=== PATIENT | male | born 1955 | race Caucasian/White ===

== ENCOUNTER 2019-12-19 05:56 | Inpatient (IN) ==
--- NOTE | 2019-12-12 09:15 | Anesthesiology Consultation ---
Date of Service December 12, 2019 Assessment & Plan (1) Encounter for pre-operative examination: - Per assessment on 12/11: Travel screen negative. No known COVID-19 positive contacts or current COVID-19 related symptoms. Surgeon arranging preop COVID t esting (scheduled 12/12; [facility]). Awaiting results. - Check BSG AM DOS - S/P Right Cataract extraction with IOL: 03/02/19: MAC [place] [facility] [place] Review Chart Review: Acceptable Risk for Surgery and Patient NOT seen in Pre Admission Testing History Surgery Operation Date: 12/19/19 09:35 Proposed Procedures p C4-C7 Anterior Cervical Discectomy and Fusion, C5 Corpectomy, Spinal Cord Monitoring - Gurjit Guzmán, Height/Weight Height: 5 ft 9.5 in Weight: 83.915 kg Allergies Allergy/AdvReac Type Severity Reaction Status Date / Time Penicillins Allergy Mild RASH Verified 12/12/19 07:53 Medications Home Medications Medication Instructions Recorded Confirmed Last Taken ICaps AREDS 2 tab PO BID #0 10/21/17 12/12/19 03/01/19 cyanocobalamin (vitamin B-12) 1,000 mcg IM MONTHLY #0 10/21/17 12/12/19 Unknown cholecalciferol (vitamin D3) 10 400 units PO QPM 08/17/18 12/12/19 03/01/19 mcg (400 unit) capsule insulin syringe-needle U-100 0.5 #10 ea 08/17/18 10/24/19 Unknown mL 31 gauge x 5/16" omega 5-brg-flp-fish oil [Fish Oil] 1 cap PO BID 01/17/19 12/12/19 03/01/19 insulin aspart U-100 100 unit/mL 1 sliding scale dose SUBCUT UD #30 04/05/19 12/12/19 Unknown subcutaneous solution ml atorvastatin 40 mg tablet 40 mg PO QPM #90 tab 04/10/19 12/12/19 Unknown vedolizumab 300 mg intravenous See Rx Instructions IV .COMPLEX 04/26/19 12/12/19 Unknown solution lorazepam 0.5 mg tablet 0.5 mg PO HS PRN #30 tab 05/29/19 12/12/19 Unknown furosemide 20 mg tablet 20 mg PO QAM #30 tab 08/22/19 12/12/19 Unknown insulin glargine 100 unit/mL 21 units SUBCUT HS #2 vial 08/24/19 12/12/19 Unknown subcutaneous solution potassium chloride 10 mEq 10 meq PO DAILY #30 tab 08/28/19 12/12/19 Unknown tablet,extended release blood sugar diagnostic #90 ea 09/14/19 10/24/19 Unknown lancets 28 gauge #90 ea 09/14/19 10/24/19 Unknown fenofibrate micronized 200 mg 200 mg PO QAM #90 cap 10/09/19 12/12/19 Unknown capsule insulin syringe-needle U-100 0.3 #300 ea 10/16/19 10/24/19 Unknown mL 31 gauge x 5/16" lisinopril 40 mg tablet 40 mg PO HS #90 tab 10/24/19 12/12/19 Unknown omeprazole 20 mg capsule,delayed 20 mg PO QAM #30 cap 10/24/19 12/12/19 Unknown release hydrocodone 10 mg-acetaminophen 1 tab PO QID PRN #120 tab 12/11/19 12/12/19 Unknown 325 mg tablet Past Medical History Medical History Anxiety Chronic neck pain Crohns disease Diabetes mellitus, type 2 IDDM GERD (gastroesophageal reflux disease) History of kidney stones Hyperlipidemia Hypertension Macular degeneration Osteoarthritis Past Family History Family History Father Cancer Mother Dementia Past Surgical History Surgical History History of bowel resection x2 History of cataract surgery RT/LEFT History of colonoscopy History of colostomy History of colostomy reversal History of lithotripsy History of open reduction and internal fixation (ORIF) procedure right arm S/P ankle joint replacement left S/P epidural steroid injection STOP BANG Total 4 Social History Smoking Status: Never smoker Do You Dip or Chew Tobacco: No Hx Alcohol Use: Yes Alcohol type: hard liquor alcohol intake frequency: 0-2 drinks per day substance use type: does not use Testing Laboratory Results 12/11/19 WBC 5.48 H/H 13.3/39.5 PLATELETS 208 SODIUM 141 POTASSIUM 3.3 CHLORIDE 105 CO2 30 BUN 11 CREATININE 0.85 GLUCOSE 113 Electrocardiogram Date: 12/11/19 NSR at 61bpm. Normal ECG. NS TWA. *Poor data quality* Chest X-Ray Date: 12/11/19 FINDINGS: Lung volumes are normal. Lungs are clear. There is no pneumothorax or pleural effusion. Cardiac size is stable. Mediastinal contours are normal. There is no evidence for pulmonary edema. IMPRESSION: No acute cardiopulmonary findings. Echocardiogram Date: 10/03/19 EF 65-70%. No RWMA. Mild cLVH. Severe LAD. Mild LVD/RAD. Mild MR. Grade I DD.
[2019-12-19] MEDS ORDERED: GABAPENTIN 300 MG CAP PO SCH (06:00)
[2019-12-19] MEDS ORDERED: CLINDAMYCIN 600 MG/54 ML BAG IV SCH (06:00)
[2019-12-19] MEDS ORDERED: LR 15ML/HR IV SCH (06:00)
[2019-12-19] MEDS ORDERED: LIDOCAINE HCL 2% 2 ML VIAL/AMP(20MG/ML) INFIL ONE (06:56)
[2019-12-19] MEDS ORDERED: fentaNYL citrate 100 MCG/2 ML VIAL ONE ×2 (06:56→08:25)
[2019-12-19] MEDS ORDERED: PROPOFOL IV EMULSION 10 MG/ML 20 ML VIAL IV ONE ×4 (06:56→08:25)
[2019-12-19] MEDS ORDERED: HYDROmorphone INJ 2 MG/ML SYR/VIAL ONE (06:57)
[2019-12-19] MEDS ORDERED: MIDAZOLAM HCL 1 MG/ML 2ML VIAL ONE (06:57)
[2019-12-19] MEDS ORDERED: ePHEDrine sulfate 50 MG/ML AMP IV PRN (07:06)
[2019-12-19] MEDS ORDERED: ATROPINE SULFATE 0.1 MG/ML 10ML SYR IV PRN (07:06)
[2019-12-19] MEDS ORDERED: HYDROmorphone INJ 1 MG/ML SYRINGE IV PRN ×2 (07:06→11:23)
[2019-12-19] MEDS ORDERED: MEPERIDINE HCL 25 MG/ML CARP/VIAL IV PRN (07:06)
[2019-12-19] MEDS ORDERED: LABETALOL HCL IV 5 MG/ML 20ML IV PRN (07:06)
[2019-12-19] MEDS ORDERED: PHENYLEPHRINE 100MCG/ML 5ML SYR IV PRN (07:06)
[2019-12-19] MEDS ORDERED: ONDANSETRON INJ 2 MG/ML 2 ML VIAL IV PRN ×2 (07:06→11:23)
[2019-12-19] MEDS ORDERED: BACITRACIN INJ 50,000 UNIT VIAL ONE (07:08)
--- NOTE | 2019-12-19 07:29 | History & Physical Bridge Note ---
Date of Service December 19, 2019 History & Physical Bridge Note I have examined the patient, reviewed the History & Physical and in the interval since the performance of the History & Physical I have noted the following changes of clinical significance: no changes noted
--- NOTE | 2019-12-19 07:30 | History & Physical Report ---
Date of Service December 19, 2019 Assessment & Plan (1) Cervical stenosis of spinal canal: Admission and Anticipated Discharge Date Admission Date: C4-C7 anterior cervical discectomy and fusion, C5 corpectomy History of Present Illness Chief Complaint: Neck and arm pain Primary Care Provider: Derek Hardy MD This is a 64-year-old male with chronic persistent neck and arm symptoms after failing course of nonoperative care is here for surgical invention. Allergies Allergy/AdvReac Type Severity Reaction Status Date / Time Penicillins Allergy Mild RASH Verified 12/19/19 06:04 Home Medications Home Medications Medication Instructions Recorded Confirmed Type ICaps AREDS 2 tab PO BID #0 10/21/17 12/19/19 History cyanocobalamin (vitamin B-12) 1,000 mcg IM MONTHLY #0 10/21/17 12/19/19 History cholecalciferol (vitamin D3) 10 400 units PO QPM 08/17/18 12/19/19 History mcg (400 unit) capsule insulin syringe-needle U-100 0.5 #10 ea 08/17/18 12/15/19 History mL 31 gauge x 5/16" omega 8-anp-diw-fish oil [Fish Oil] 1 cap PO BID 01/17/19 12/19/19 History insulin aspart U-100 100 unit/mL 1 sliding scale dose SUBCUT UD #30 04/05/19 12/19/19 Rx subcutaneous solution ml atorvastatin 40 mg tablet 40 mg PO QPM #90 tab 04/10/19 12/19/19 Rx vedolizumab 300 mg intravenous See Rx Instructions IV .COMPLEX 04/26/19 12/19/19 History solution lorazepam 0.5 mg tablet 0.5 mg PO HS PRN #30 tab 05/29/19 12/19/19 Rx furosemide 20 mg tablet 20 mg PO QAM #30 tab 08/22/19 12/19/19 Rx insulin glargine 100 unit/mL 21 units SUBCUT HS #2 vial 08/24/19 12/19/19 Rx subcutaneous solution blood sugar diagnostic #90 ea 09/14/19 12/15/19 Rx lancets 28 gauge #90 ea 09/14/19 12/15/19 Rx fenofibrate micronized 200 mg 200 mg PO QAM #90 cap 10/09/19 12/19/19 Rx capsule insulin syringe-needle U-100 0.3 #300 ea 10/16/19 12/15/19 Rx mL 31 gauge x 5/16" lisinopril 40 mg tablet 40 mg PO HS #90 tab 10/24/19 12/19/19 Rx omeprazole 20 mg capsule,delayed 20 mg PO QAM #30 cap 10/24/19 12/19/19 Rx release hydrocodone 10 mg-acetaminophen 1 tab PO QID PRN #120 tab 12/11/19 12/19/19 Rx 325 mg tablet amlodipine 2.5 mg tablet 2.5 mg PO DAILY #30 tab 12/15/19 12/19/19 Rx potassium chloride 10 mEq 10 meq PO BID #180 tab 12/15/19 12/19/19 Rx tablet,extended release Past Med/Surg History Medical History Anxiety Chronic neck pain Crohns disease Diabetes mellitus, type 2 IDDM GERD (gastroesophageal reflux disease) History of kidney stones Hyperlipidemia Hypertension Macular degeneration Osteoarthritis Surgical History History of bowel resection x2 History of cataract surgery RT/LEFT History of colonoscopy History of colostomy History of colostomy reversal History of lithotripsy History of open reduction and internal fixation (ORIF) procedure right arm S/P ankle joint replacement left S/P epidural steroid injection Family History Father Cancer Mother Dementia Social History Smoking Status: Never smoker Second Hand Exposure: Yes ( A CHILD); Do You Dip or Chew Tobacco: No; Tobacco Cessation Education Requested by Patient: No Hx Alcohol Use: Yes Alcohol type: hard liquor Preferred Language: [place] Island[place] Communication Ability: Effective Folded Cloth Taper Required: No Beliefs That Will Affect Care: None Current Living Situation: Spouse Feels Safe at Home: Yes Safety Concerns: Feels Safe At This Time Seatbelt Use: always Assistive Devices: Glasses Assistive Devices Comment: FLIPPER DEVICE CURRENTLY Physical Exam Physical Exam: Patient is alert and oriented neurologically intact Heart regular rate and rhythm Lungs clear to auscultation Results & Data ([facility]) Vital Signs (Past 12 Hours) Vital Signs Temp Pulse Resp BP Pulse Ox 12/19/19 06:21 37.3 C 76 18 181/98 H 98
[2019-12-19] MEDS ORDERED: ACETAMINOPHEN 1000 MG/100 ML IV IV ONE (07:34)
[2019-12-19] MEDS ORDERED: hydrALAZINE HCL 20 MG/ML VIAL ONE (08:24)
[2019-12-19] MEDS ORDERED: ROCURONIUM BROMIDE 10 MG/ML 5 ML VIAL IV ONE (08:24)
[2019-12-19] MEDS ORDERED: NEOSTIGMINE METHYLSULFATE 1 MG/ML 10ML VIAL ONE (08:24)
[2019-12-19] MEDS ORDERED: GLYCOPYRROLATE 0.2 MG/ML VIAL ONE (08:24)
[2019-12-19] MEDS ORDERED: DEXAMETHASONE SOD INJ 4 MG/ML VIAL ONE (08:25)
--- NOTE | 2019-12-19 09:49 | Operative Report ---
Post Operative Report Pre & Post Diagnosis Operation Date: 12/19/19 07:45 Pre-Op Diagnosis: Cervical spinal stenosis with myeloradiculopathy Post-Op Diagnosis: Same I identified the patient and participated in the time-out.: Yes Procedure Operation Date: 12/19/19 07:45 Actual Procedures #1 anterior cervical corpectomy with bilateral foraminotomies C5. #2 anterior cervical discectomy with bilateral foraminotomies C6-C7. #3 anterior cervical arthrodesis C4-C6 and C6-C7. #4 placement peek cage 25 mm in height at C4-C6 and 8 mm in height at C6-C7. #5 placement locally harvested morselized autograft combined with DBM and interbody cages. #6 application of avendano plate and screws from C4-C7. Surgeon Gurjit Guzmán, Personnel Specialist Chen Pruett Estimated Blood Loss 20 Findings Consistent with Post-Op Diagnosis Specimens None Indications This is a 64-year-old male who presents with neck and arm symptoms. After failing course of nonoperative care is here for surgical invention. Description of Procedure Patient was met with identified informed consent obtained. Patient was then taken to the operative suite underwent intubation placed in supine position on the Zbigniew table head Bender cold header. All bony prominences well-padded eyes inspected to ensure no external pressure placed on the. This point the anterior cervical spine was prepped and draped in a sterile fashion. With the assistance of fluoroscopy identified the C5-6 disc base and transverse incision was placed along the right anterior aspect of the cervical spine overlying this region. Sharp dissection with assistance of bipolar electrocautery was performed down to and exposing the anterior cervical spine from C4-C7. Self- retaining retractors placed. I then performed a complete discectomy of C4-5 out to the uncovertebral's bilaterally followed by C5-C6. [place] distracting pins were then placed in C4 and C6 to distract across the C5 vertebral body. A complete corpectomy was then performed including removal of all posterior annular fibers longitudinal ligament bilateral foraminotomies performed. The endplates were then burred to subcortical bleeding bone and a 25 mm peek cage filled with osteobone graft tapped in position. I then proceeded to C6-C7 again complete discectomy performed out to the uncovertebral's bilaterally. [place] distraction pins again utilized. I removed all posterior annular fibers longitudinal ligament bilateral foraminotomies performed. Endplates were then burred to subcortical bleeding bone and an 8 mm peek cage filled with locally harvested morselized autograft and DBM tapped in position. Distracting apparatus was removed. All anterior osteophytes burred to a smooth cortical surface and a avendano plate and screws applied with the assistance of fluoroscopy. The incision was then copiously irrigated explored to ensure no damage to surrounding structures remaining bleeding. 10 round LUKAS drain inserted. The incision was then closed with 2-0 Vicryl in the fascia and a 4 Monocryl for fascial closure. Steri-Strip sterile dressings placed. Patient waken taken to PACU stable condition. Please note spinal cord monitoring was utilized at the procedure no changes noted. Lastly Chen Pruett was present at the entire surgery involved the patient positioning complex portions of the surgery and final skin closure. I attest to the content of the Intraoperative Record and any orders documented therein. Any exceptions are noted below.
--- NOTE | 2019-12-19 10:13 | Fluoroscopy Report ---
FL cervical 2-3V CLINICAL HISTORY: ACDF C4-7 CORPECTOMY C5 COMPARISON STUDY: 09/20/2014 FLUOROSCOPY TIME: 18 seconds. NUMBER OF FLUOROSCOPIC IMAGES: 2 FINDINGS: 2 intraoperative fluoroscopic spot images are provided for interpretation. These reveal pos tsurgical changes of a C5 corpectomy, and C6-7 discectomy and interbody fusion. There is anterior met allic plate with screws at the C4 C6 and C7 levels. IMPRESSION: Intraoperative radiographs demonstrating postsurgical changes as described above. ACT 112: Negative or not required by law. Electronically signed by: Isacc Weeks M.D. 12/19/2019 10:12 AM
[2019-12-19] MEDS: fentaNYL citrate 100 MCG/2 ML VIAL IV PRN ×2 (10:18→10:26)
[2019-12-19] MEDS ORDERED: HYDROCORTISONE SOD SUCCINATE 100 MG/2 ML VIAL ONE (10:30)
--- NOTE | 2019-12-19 10:50 | Anesthesiology Progress Note ---
Date of Service December 19, 2019 Anesthesia Post Procedure Vital Signs Vital Signs: Temp Pulse Pulse Resp BP BP Pulse Ox 12/19/19 10:45 36.5 C 82 13 160/81 H 96 12/19/19 10:35 83 14 157/81 H 97 12/19/19 10:25 76 14 153/80 H 97 12/19/19 10:15 80 14 170/73 H 97 12/19/19 10:05 90 14 176/80 H 97 12/19/19 09:55 36.3 C L 94 H 17 173/88 H 97 12/19/19 06:21 37.3 C 76 18 181/98 H 98 Pain Intensity Right Arm: Pain Intensity: 3 Neck: Pain Intensity: 3 Transfer of Care Handoff Completed per policy Notes Mental Status: alert / awake / arousable Patient Amnestic to Procedure: Yes Nausea / Vomiting: adequately controlled Pain: adequately controlled Airway Patency, RR, SpO2: stable & adequate BP & HR: stable & adequate Hydration State: stable & adequate Anesthetic Complications: no major complications apparent and Pt Satisfied with anesthetic care Notes: The patient is awake and stable. He has no swelling in his neck.
[2019-12-19] MEDS ORDERED: FLOSEAL HEMOSTATIC MATRIX 10ML TOP ONE (10:57)
[2019-12-19] MEDS ORDERED: DO NOT ADMINISTER FLU VACCINE PRN (11:23)
[2019-12-19] MEDS ORDERED: SOD PHOSPHATE/SOD BIPHOSPHATE ENEMA 132 ML BTL PR PRN (11:23)
[2019-12-19] MEDS ORDERED: DEXAMETHASONE SOD PHOSPHATE 8 MG in SYRINGE 0 ML IV PRN (11:23)
[2019-12-19] MEDS ORDERED: ONDANSETRON 4 MG OD TAB PO PRN (11:23)
[2019-12-19] MEDS ORDERED: ALUMINUM/MAGNESIUM SUSP 30 ML UDC PO PRN (11:23)
[2019-12-19] MEDS ORDERED: LORazepam 0.5 MG/1 ML VIAL IV PRN (11:23)
[2019-12-19] MEDS ORDERED: hydrOXYzine HCl 25 MG TAB PO PRN (11:23)
[2019-12-19] MEDS ORDERED: ACETAMINOPHEN 1,000 MG/100 ML VIAL IV PRN (11:23)
[2019-12-19] MEDS ORDERED: NALOXONE HCL 0.4 MG/1 ML VIAL/CARP IV PRN (11:23)
[2019-12-19] MEDS ORDERED: HYDROmorphone INJ 0.5 MG/0.5 ML SYR IV PRN (11:23)
[2019-12-19] MEDS ORDERED: PROMETHAZINE HCL 12.5 MG in SODIUM CHLORIDE 0.9% 50 ML IV PRN (11:23)
[2019-12-19] MEDS ORDERED: diphenhydrAMINE Capsule 25 MG CAP PO PRN (11:23)
[2019-12-19] MEDS ORDERED: RACEPINEPHRINE 2.25% NEBU SOLN 0.5 ML VIAL INH PRN (11:23)
[2019-12-19] MEDS ORDERED: DO NOT ADMINISTER PNEUMOCOCCAL VACCINE PRN (11:23)
[2019-12-19] MEDS ORDERED: traMADol HCL 50 MG TABLET PO PRN (11:23)
[2019-12-19] MEDS ORDERED: METOCLOPRAMIDE HCL INJ 5 MG/ML 2 ML VIAL IV PRN (11:23)
[2019-12-19] MEDS ORDERED: FAMOTIDINE 20 MG TAB PO PRN (11:23)
[2019-12-19] MEDS ORDERED: MAGNESIUM HYDROXIDE SUSP 30 ML UDC PO PRN (11:23)
[2019-12-19] MEDS ORDERED: ACETAMINOPHEN 500 MG TAB PO PRN (11:23)
[2019-12-19] MEDS ORDERED: PHARMACY GLYCEMIC MGMT CONSULT PRN (11:44)
[2019-12-19] MEDS: SODIUM CHLORIDE 0.9% 1000ML 1,000 ML IV SCH ×2 (12:07→22:20)
[2019-12-19] MEDS ORDERED: DEXTROSE 50% 50 ML SYRINGE IV PRN (12:30)
[2019-12-19] MEDS ORDERED: GLUCOSE 10 TABS/TUBE PO PRN (12:30)
[2019-12-19] MEDS ORDERED: CARBOHYDRATES FOR HYPOGLYCEMIA PO PRN (12:30)
[2019-12-19] MEDS ORDERED: NovoLIN-N (NPH) PER UNIT CHARGE SQ ONE (12:30)
[2019-12-19] MEDS ORDERED: GLUCAGON FOR INJ 1 MG VIAL IM PRN (12:30)
[2019-12-19] MEDS ORDERED: GLUCOSE 40% GEL 15 GM TUBE PO PRN (12:30)
[2019-12-19] MEDS ORDERED: PHARMACY GLYCEMIC MGMT CONSULT STA (12:40)
[2019-12-19] MEDS: INSULIN ASPART 100 UNITS/ML 3 ML PEN SC SCH ×3 (12:56→20:37)
--- NOTE | 2019-12-19 14:56 | Pharmacy Report ---
Glycemic Control Consultation - Date of Service December 19, 2019 - Scope Scope: Glycemic Pharmacist consulted for glycemic control and to write orders per [facility] inpatient glycemic control protocol. - Objective Weight: 88 kg Accnilamecks BSG (last 24hrs): 12/19/19 12/19/19 12/19/19 06:16 09:58 12:12 POC Glucose 123 H 148 H 140 H - Recent Pertinent Medications Outpatient Anti-diabetic Regimen: * Lantus 21 units SC HS * Novolog SSI * 151-250 = 3 units * 251-350 = 6 units * 351-450 = 9 units * 8 units HS * A1c = 6.1% (10/16/2019) Risk Factors for Insulin Resistance: * Steroids: * Dexamethasone 4 mg IV x 1 * Dexamethasone 8 mg IV daily (starting tomorrow AM) * Recent Surgery: * POD #0 * Diet: * T2DM - Assessment & Plan Assessment & Plan: ASSESSMENT: * 64 yo M admitted postoperatively. Pharmacy is consulted for glycemic management. * Preop BSG was 123 mg/dL. Patient did take 10 units of Lantus last evening prior to admission. Postop BSGs were 148-140 mg/dL. * Gave NPH 15 units x 1 to cover for steroids received in OR. Will start patient on Lantus per scale this evening. * Given addition of steroids starting tomorrow, Lantus dose will not be lower than home dose this evening and may need to add NPH daily while on steroids. Will start Novolog based on a weight/stress of 3. PLAN FOR INPATIENT GLYCEMIC CONTROL: * Basal insulin * Lantus 21-25 units SQ HS * Bolus insulin * NovoLog per scale ACHS or Q6hrs while NPO * Goal Range: Low 110 mg/dL - High 140 mg/dL * Correction Factor: 20 mg/dL/unit * Nutritional / Prandial insulin per carb ratio of 1 unit per 6 grams CHO consumed * Please note that the plan above was derived based on current level of insulin resistance and hospital stress. These recommendations are appropriate for inpatient admission only. Plan of care upon discharge will need to be reassessed to avoid potential outpatient hypo/hyperglycemia. Thank you.
[2019-12-19] MEDS: oxyCODONE HCL IR 5 MG TAB (IMMEDIATE RELEASE) PO PRN ×2 (15:16→19:36)
[2019-12-19] MEDS: CLINDAMYCIN 600 MG in DEXTROSE 5% 50 ML IV SCH (16:39)
--- NOTE | 2019-12-19 18:30 | Hospitalist Consultation ---
Date of Consultation December 19, 2019 Assessment & Plan (1) Post-operative state: s/p cervical discectomy and fusion pain control, dvt proph per primary monitor for acute blood loss (2) Crohns disease: Takes vedolizumab infusions outpatient (3) Type 2 diabetes mellitus without complication: Most recent A1c from September 27.1 Consult pharmacy for glycemic management (4) Hyperlipidemia: Continue home statin Supervising Physician Co-Signing Physician Notes Patient seen and examined with Rosa STEEL. I agree with her exam findings, review of systems, assessment and plan. I personally reviewed the lab work and imaging as well. patient doing well, pain is controlled, no dyspnea, no chest pain vitals largely stable, some elevated blood pressure readings but could be due to pain/stress - DDD of the cervical spine with radiculopathy, intractable pain s/p decompression of cervical spine management per ortho - DM, insulin dependent diabetic diet, Novolog SS, basal insulin monitor for hypoglycemia - HTN: elevated continue home regimen check in the AM likely for discharge on 12/19, will check labs in the AM History of Present Illness Attending Physician: Gurjit Guzmán, DO History of Present Illness Mr. Roland is post anterior cervical discectomy and fusion today. He has no complaints. 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, lives with his , never smoker, drinks about 6 drinks per weke Family: history of dementia and lung cancer Allergies Allergy/AdvReac Type Severity Reaction Status Date / Time Penicillins Allergy Mild RASH Verified 12/19/19 06:04 Home Medications Home Medications Medication Instructions Recorded Confirmed Type ICaps AREDS 2 tab PO BID #0 10/21/17 12/19/19 History cyanocobalamin (vitamin B-12) 1,000 mcg IM MONTHLY #0 10/21/17 12/19/19 History cholecalciferol (vitamin D3) 10 400 units PO QPM 08/17/18 12/19/19 History mcg (400 unit) capsule insulin syringe-needle U-100 0.5 #10 ea 08/17/18 12/15/19 History mL 31 gauge x 5/16" omega 3-qli-vma-fish oil [Fish Oil] 1 cap PO BID 01/17/19 12/19/19 History insulin aspart U-100 100 unit/mL 1 sliding scale dose SUBCUT UD #30 04/05/19 12/19/19 Rx subcutaneous solution ml atorvastatin 40 mg tablet 40 mg PO QPM #90 tab 04/10/19 12/19/19 Rx vedolizumab 300 mg intravenous See Rx Instructions IV .COMPLEX 04/26/19 12/19/19 History solution lorazepam 0.5 mg tablet 0.5 mg PO HS PRN #30 tab 05/29/19 12/19/19 Rx furosemide 20 mg tablet 20 mg PO QAM #30 tab 08/22/19 12/19/19 Rx insulin glargine 100 unit/mL 21 units SUBCUT HS #2 vial 08/24/19 12/19/19 Rx subcutaneous solution blood sugar diagnostic #90 ea 09/14/19 12/15/19 Rx lancets 28 gauge #90 ea 09/14/19 12/15/19 Rx fenofibrate micronized 200 mg 200 mg PO QAM #90 cap 10/09/19 12/19/19 Rx capsule insulin syringe-needle U-100 0.3 #300 ea 10/16/19 12/15/19 Rx mL 31 gauge x 5/16" lisinopril 40 mg tablet 40 mg PO HS #90 tab 10/24/19 12/19/19 Rx omeprazole 20 mg capsule,delayed 20 mg PO QAM #30 cap 10/24/19 12/19/19 Rx release hydrocodone 10 mg-acetaminophen 1 tab PO QID PRN #120 tab 12/11/19 12/19/19 Rx 325 mg tablet amlodipine 2.5 mg tablet 2.5 mg PO DAILY #30 tab 12/15/19 12/19/19 Rx potassium chloride 10 mEq 10 meq PO BID #180 tab 12/15/19 12/19/19 Rx tablet,extended release oxycodone 5 mg PO Q6H PRN #20 tab 12/19/19 Rx tramadol 50 mg PO Q6H PRN #20 tab 12/19/19 Rx Patient History Medical History (Updated 12/19/19 @ 07:29 by Gurjit Guzmán DO) Anxiety Chronic neck pain Crohns disease Diabetes mellitus, type 2 IDDM GERD (gastroesophageal reflux disease) History of kidney stones Hyperlipidemia Hypertension Macular degeneration Osteoarthritis Surgical History (Updated 12/19/19 @ 18:27 by Deford Guillard, STONE OPERATOR) History of bowel resection x2 History of cataract surgery RT/LEFT History of colonoscopy History of colostomy History of colostomy reversal History of lithotripsy History of open reduction and internal fixation (ORIF) procedure right arm S/P ankle joint replacement left S/P epidural steroid injection Family History Father Cancer Mother Dementia Social History Smoking Status: Never smoker Second Hand Exposure: Yes ( A CHILD); Do You Dip or Chew Tobacco: No; Tobacco Cessation Education Requested by Patient: No Hx Alcohol Use: Yes Alcohol type: hard liquor Preferred Language: Cypriot Communication Ability: Effective Product Strategy Director Required: No Beliefs That Will Affect Care: None marital status: Current Living Situation: Spouse Feels Safe at Home: Yes Safety Concerns: Feels Safe At This Time Seatbelt Use: always Assistive Devices: Hearing Aid - Left and Hearing Aid - Right Assistive Devices Comment: FLIPPER DEVICE CURRENTLY Review of Systems Constitutional: no fever, no chills and no body aches Respiratory: no cough and no dyspnea Cardiovascular: no chest pain and no palpitations Gastrointestinal: no abdominal pain, no nausea and no vomiting Genitourinary: no dysuria and no urinary hesitancy Musculoskeletal: no back pain and no joint pain Integumentary: no rash Physical Exam Physical Exam: General: no distress Eyes: normal inspection, PERLL Respiratory: chest non tender, clear to auscultation, normal breath sounds, no respiratory distress, no accessory muscle use Cardiac: regular rate and rhythm, no rub or gallop, no murmur, no edema, no jvd GI/: active bowel sounds, no abd pain or tenderness, soft, non distended Extremities: normal range of motion, normal strength, non tender Neuro/Psych: alert and oriented x 3, normal mood and affect Skin: normal color, dry Results & Data Results & Data ([facility]) Vital Signs (Past 12 Hours) Vital Signs Temp Pulse Pulse Resp BP Pulse Ox 12/19/19 16:23 36.4 C L 87 16 162/83 H 96 12/19/19 15:23 90 14 96 12/19/19 14:25 36.7 C 88 18 161/83 H 95 12/19/19 13:22 36.7 C 93 H 18 151/69 H 96 10/27/20 12:30 36.7 C 93 H 16 155/83 H 96 12/19/19 11:53 36.5 C 82 16 160/79 H 97 12/19/19 11:42 89 16 96 12/19/19 11:25 36.8 C 82 16 150/77 H 95 12/19/19 11:05 88 12 159/73 H 97 12/19/19 10:55 81 12 161/79 H 97 12/19/19 10:45 36.5 C 82 13 160/81 H 96 12/19/19 10:35 83 14 157/81 H 97 12/19/19 10:25 76 14 153/80 H 97 12/19/19 10:15 80 14 170/73 H 97 12/19/19 10:05 90 14 176/80 H 97 12/19/19 09:55 36.3 C L 94 H 17 173/88 H 97 PG Care Time/CCT Total # of Minutes Spent Total Time Spent with Patient: Total time spent is greater than 50% in coordination of care (as documented) at patient's floor/unit and/or counseling patient: Coding Level of Care Code 40312 Inpt Consult Level 4 Diagnoses Post-operative state Z98.890 Crohns disease K50.90 Type 2 diabetes mellitus without complication E11.9 Hyperlipidemia E78.5
[2019-12-19] MEDS: POTASSIUM CHLORIDE 10 MEQ TABCR PO SCH (20:26)
[2019-12-19] MEDS ORDERED: INSULIN GLARGINE SOLOSTAR 100 UNITS/ML 3 ML PEN SC SCH ×2 (21:00)
[2019-12-19] MEDS ORDERED: DOCUSATE SODIUM/SENNA 50/8.6MG TAB PO SCH (21:00)
[2019-12-19] MEDS ORDERED: lisinopril 40 MG TAB PO SCH (21:00)
[2019-12-19] MEDS ORDERED: CHOLECALCIFEROL (VITAMIN D) 400 UNITS TABLET PO SCH (21:00)
[2019-12-19] MEDS ORDERED: ATORVASTATIN 40 MG TAB PO SCH (21:00)
[2019-12-20] MEDS: CLINDAMYCIN 600 MG in DEXTROSE 5% 50 ML IV SCH (00:16)
[2019-12-20] MEDS: oxyCODONE HCL IR 5 MG TAB (IMMEDIATE RELEASE) PO PRN ×3 (00:22→09:49)
[2019-12-20] MEDS: LORazepam 0.5 MG TAB PO PRN ×2 (05:11→08:34)
[2019-12-20 07:04] LABS: Hematocrit (blood only) 36.7 % (42-52); Hemoglobin 12.4 g/dL (14.0-18.0); Mean Corpuscular Hemoglobin 29.5 pg (25-34); Mean Corpuscular Hgb Conc 33.8 g/dL (32-36); Mean Corpuscular Volume 87.2 fL (80-100); Mean Platelet Volume 10.8 fL (7.4-10.4); Platelet Count 216 K/uL (130-400); RDW Coefficient of Variation 14.2 % (11.5-14.5); Red Blood Count 4.21 M/uL (4.7-6.1); White Blood Count 7.69 K/uL (4.8-10.8)
[2019-12-20 07:34] LABS: BUN Creatinine Ratio 10.9 (10-20); Calcium 9.1 mg/dl (8.5-10.1); Est GFR (African American) 106.3; Est GFR (Non-African American) 91.7; Potassium 3.1 mmol/L (3.5-5.1)
[2019-12-20] MEDS ORDERED: POTASSIUM CHLORIDE 20 MEQ/15 ML UDC PO ONE (08:30)
[2019-12-20] MEDS: POTASSIUM CHLORIDE 10 MEQ TABCR PO SCH (08:36)
[2019-12-20] MEDS: INSULIN ASPART 100 UNITS/ML 3 ML PEN SC SCH (08:37)
--- NOTE | 2019-12-20 08:41 | Discharge Summary ---
Date of Service December 20, 2019 Admission HPI Per Admitting Provider This is a 64-year-old male with chronic persistent neck and arm symptoms after failing course of nonoperative care is here for surgical invention. Principal Diagnosis Cervical spinal stenosis with myeloradiculopathy Discharge Data Allergies Allergy/AdvReac Type Severity Reaction Status Date / Time Penicillins Allergy Mild RASH Verified 12/19/19 06:04 Consultations 12/19/19 11:53 Consult Hospitalist Routine Procedures Performed Operation Date: 12/19/19 07:45 Actual Procedures p C4-C7 Anterior Cervical Discectomy and Fusion, C5 Corpectomy, application of demineralized bone matrix, Spinal Cord Monitoring(Not Applicable) - Gurjit Guzmán DO Ordered Studies 12/19/19 07:45 FL cervical 2-3V Routine FL fluoroscopy <1hr Routine Hospital Course (1) Cervical stenosis of spinal canal: Patient underwent anterior cervical decompression and fusion tolerated this well was taken to orthopedic for postop labor postop day morning swallowing well excellent strength testing pain markedly improved tolerating p.o. foods and subsequently discharged home. He will follow-up in my office tomorrow for dressing change and drain removal. Total Time Total Time Spent Total Time Spent (In Minutes): 20 minutes Discharge Plan Discharge Items Patient Disposition: Home - Self-Care Reason For Visit: Spinal Stenosis,Cervical Region Discharge Diagnosis: Cervical spinal stenosis with myeloradiculopathy Activity: As commented below Non-emergency contact: Primary Care Provider Call non-emergency contact if: you have any medication questions Follow-up/Referrals: Derek Hardy MD [Primary Care Provider] - Diet: Regular Addtl Attending Provider Instructions: ACTIVITY RECOMMENDATIONS: SELF CARE INSTRUCTIONS AFTER CERVICAL FUSIONS 1. No smoking. Smoking drastically decreases the chance of a solid fusion. 2. No bending, lifting more than 5 pounds, or twisting (roll like a log when turning in bed). 3. You may shower 3 days after surgery. Thoroughly dry wound. Do not soak in the tub. 4. Cervical collar: Must be worn at all times including sleeping. You may remove the brace only to bath, eat and if you are sitting in a recliner. 5. Please walk as much as you can for exercise. Gradually increase the distance that you walk as your endurance increases. SPECIAL CARE INSTRUCTIONS: VERY IMPORTANT TO READ AND REVIEW A. Do not take any anti-inflammatory medications (i.e. Indocin, Advil, Aspirin, Naprosyn, Aleve, Motrin, etc.) as these may inhibit the chance of a solid fusion. Tylenol is okay to take. B. Your surgical incision has been closed with a cosmetic suture under the skin that will dissolve in about 6 weeks. In 14 days, you can use a pair of clean scissors and cut the suture that is left outside of the skin at the ends of your incision. C. Complications are uncommon, but please contact us if you have any signs or symptoms of: 1. wound infection (fever higher than 102.5 degrees F, redness, separation of wound, drainage, or increasing pain from the incision) 2. blood clots in legs (pain, swelling, redness and warmth in legs) 3. urinary tract infection (fever higher than 102.5 degrees, burning upon urination or increased frequency of urination) 4. nerve problems (inability to walk on your toes or heels, numbness, loss of bowel or bladder control) 5. any other symptoms that concern you. D. Please call the office at if you have any concerns or qu estions about your operation or recovery. MANAGING PAIN AFTER SPINAL SURGERY 1. Narcotic medication is intended for short-term use and will be provided for surgical pain. Surgical pain usually lasts for a period of 4-6 weeks. Narcotic medication includes Percocet, Vicodin, Darvocet, Tylenol #3 or Lortab. 2. Longer-term pain is more appropriately treated with non-narcotic medication such as Tylenol ES. 3. Muscle spasm is not appropriately treated with narcotics. Muscle relaxers such as Soma, Flexeril or Skelaxin can be used along with Tylenol ES. 4. Remember that we all live with some "aches and pains". This is not unusual or uncommon after an injury or as we get older. 5. We will provide appropriate medication within the normal guidelines of their prescribed use. We will also be very cautious and aware of potential abuse and extended duration of patients' medication needs. 6. Please allow 2-3 days to process refills. Prescriptions will not be mailed but must be picked up at the office. FOLLOW UP VISIT: Keep your scheduled follow-up appointment. Any questions, please call the office at . Pending Studies at Discharge: No Stand-Alone Forms: My [facility] igobubble, Smoking Cessation Medications and DC Order Prescriptions: New tramadol 50 mg tablet 50 mg PO Q6H PRN (Reason: pain, moderate) Qty: 20 RF: 0 oxycodone 5 mg tablet 5 mg PO Q6H PRN (Reason: pain, severe) Qty: 20 RF: 0 Continued cyanocobalamin (vitamin B-12) 1,000 mcg/mL Solution 1,000 mcg IM MONTHLY Qty: 0 RF: 0 ICaps AREDS [id number] Capsule 2 tab PO BID Qty: 0 RF: 0 Novolog U-100 Insulin aspart 100 unit/mL solution 1 sliding scale dose SUBCUT UD Qty: 30 RF: 3 atorvastatin 40 mg tablet 40 mg PO QPM Qty: 90 RF: 3 lorazepam 0.5 mg tablet 0.5 mg PO HS PRN (Reason: Anxiety) Qty: 30 RF: 5 Lantus U-100 Insulin 100 unit/mL solution 21 units SUBCUT HS Qty: 2 RF: 5 (DME) lancets [FreeStyle Lancets] 28 gauge misc See Dose Instructions .ROUTE .MEDSUPPLY Qty: 90 RF: 5 fenofibrate micronized 200 mg capsule 200 mg PO QAM Qty: 90 RF: 0 (DME) insulin syringe-needle U-100 [BD Insulin Syringe Ultra-Fine] 0.3 mL 31 gauge x 5/16" syringe See Dose Instructions .ROUTE .MEDSUPPLY Qty: 300 RF: 3 Entyvio 300 mg recon soln See Rx Instructions IV .COMPLEX RF: 0 omeprazole 20 mg capsule,delayed release(DR/EC) 20 mg PO QAM Qty: 30 RF: 11 lisinopril 40 mg tablet 40 mg PO HS Qty: 90 RF: 3 potassium chloride 10 mEq tablet extended release 10 meq PO BID Qty: 180 RF: 3 amlodipine 2.5 mg tablet 2.5 mg PO DAILY Qty: 30 RF: 11 (DME) FreeStyle Lite Strips Strip See Dose Instructions .ROUTE .MEDSUPPLY Qty: 90 RF: 5 (DME) insulin syringe-needle U-100 [BD Insulin Syringe Ultra-Fine] 0.5 mL 31 gauge x 5/16" syringe See Dose Instructions .ROUTE .MEDSUPPLY Qty: 10 RF: 0 cholecalciferol (vitamin D3) 400 unit capsule 400 units PO QPM RF: 0 furosemide 20 mg tablet 20 mg PO QAM Qty: 30 RF: 5 omega [id number]-fish oil [Fish Oil] 1,000 mg (120 mg-180 mg) Capsule 1 cap PO BID RF: 0 Discontinued hydrocodone-acetaminophen 10-325 mg tablet 1 tab PO QID PRN (Reason: Severe Pain) Qty: 120 RF: 0 Discharge Orders: Discharge Order (Routine); Ordered 12/20/19 Ordered By: Gurjit Guzmán Admission Data Admit Date/Time: 12/19/19 11:10 Attending Provider: Gurjit Guzmán Admit Provider: Gurjit Guzmán Primary Care Provider: Derek Hardy Other Providers: Jared Pedersen
[2019-12-20] MEDS ORDERED: DEXAMETHASONE SOD PHOSPHATE 8 MG in SYRINGE 0 ML IV SCH (09:00)
[2019-12-20] MEDS ORDERED: PANTOprazole 40 MG TAB PO SCH (09:00)
[2019-12-20] MEDS ORDERED: FUROSEMIDE 20 MG TAB PO SCH (09:00)
[2019-12-20] MEDS ORDERED: CEROVITE ADV FORMULA TAB PO SCH (09:00)
[2019-12-20] MEDS ORDERED: POTASSIUM CHLORIDE 20 MEQ TABCR PO SCH (09:00)
[2019-12-20] MEDS ORDERED: amLODIPine BESYLATE 5 MG TAB PO SCH (09:00)
--- NOTE | 2019-12-20 09:43 | Hospitalist Progress Note ---
Date of Service December 20, 2019 Assessment & Plan (1) Post-operative state: s/p cervical discectomy and fusion pain control, dvt proph per primary doing well, plans for discharge this morning follow up closely for LUKAS drain removal clear for discharge from medical perspective (2) Crohns disease: Takes vedolizumab infusions outpatient no GI symptoms at this time (3) Type 2 diabetes mellitus without complication: Most recent A1c from September 27. Consult pharmacy for glycemic management no hypoglycemia, stable follow up with PCP, diabetic diet (4) Hyperlipidemia: Continue home statin (5) Cervical radiculopathy: (6) Hypokalemia: slightly low at 3.1 continue KCl 10 BID follow up with PCP Admission and Anticipated Discharge Date Admission Date: December 19, 2019 Subjective patient feeling well, pain is controlled, slept okay last night labs reviewed, WBC up slightly with decadron sugars are reasonably controlled, no hypoglycemia BP is up with pain/stress reviewed labs, Cr is at baseline, K is a little low at 3.1 but this is chronic issue, on BID replacement plans to go home this morning Review of Systems Review of Systems: All systems reviewed & are unremarkable except as noted in Subjective Musculoskeletal: + neck pain Physical Exam Constitutional: WD/WN, vitals as above Neck: trachea midline, no thyromegaly (in hard collar, immobilized) Respiratory: normal respiratory effort, lungs clear to auscultation Cardiovascular: RRR, no murmur, no edema Gastrointestinal (Abdomen): normal bowel sounds, soft, nontender, no hepatosplenomegaly Musculoskeletal: no cyanosis or clubbing, extremities motor strength 5/5 Skin: no rashes, warm and dry Psychiatric: A+Ox3, euthymic affect Lymphatic: no cervical or axillary lymphadenopathy Results & Data Results & Data ([facility]) Vital Signs (Past 12 Hours) Vital Signs Temp Pulse Resp BP Pulse Ox 12/20/19 08:19 36.8 C 69 175/86 H 96 12/20/19 07:21 77 20 99 12/20/19 07:00 36.8 C 69 20 175/86 H 96 12/20/19 06:40 37.0 C 63 18 160/81 H 98 12/20/19 05:49 68 18 170/78 H 98 12/20/19 04:55 36.7 C 72 16 189/89 H 98 12/20/19 03:00 71 14 98 10/28/20 02:30 36.7 C 69 16 173/80 H 98 12/20/19 01:23 79 16 164/80 H 97 12/20/19 00:53 181/87 H 12/20/19 00:34 188/88 H 12/20/19 00:19 36.7 C 79 18 96 12/19/19 23:35 80 16 96 12/19/19 22:25 36.4 C L 89 16 179/98 H 96 Laboratory Results Laboratory Results - last 24 hr 12/19/19 12/19/19 12/19/19 09:58 12:12 17:02 WBC RBC Hgb Hct MCV MCH MCHC RDW Std Deviation RDW Coeff of Jean Paul Plt Count MPV Sodium Potassium Chloride Carbon Dioxide Anion Gap BUN Creatinine Est Cr Clr Drug Dosing Est GFR ( Amer) Est GFR (Non-Af Amer) BUN/Creatinine Ratio Glucose POC Glucose 148 H 140 H 98 Calcium 12/19/19 12/20/19 12/20/19 20:31 06:13 06:13 WBC 7.69 RBC 4.21 L Hgb 12.4 L Hct 36.7 L MCV 87.2 MCH 29.5 MCHC 33.8 RDW Std Deviation 45.0 RDW Coeff of Jean Paul 14.2 Plt Count 216 MPV 10.8 H Sodium 140 Potassium 3.1 L Chloride 106 Carbon Dioxide 28 Anion Gap 6.0 BUN 9 Creatinine 0.83 Est Cr Clr Drug Dosing 97.0 Est GFR ( Amer) 106.3 Est GFR (Non-Af Amer) 91.7 BUN/Creatinine Ratio 10.9 Glucose 111 H POC Glucose 94 Calcium 9.1 12/20/19 08:17 WBC RBC Hgb Hct MCV MCH MCHC RDW Std Deviation RDW Coeff of Jean Paul Plt Count MPV Sodium Potassium Chloride Carbon Dioxide Anion Gap BUN Creatinine Est Cr Clr Drug Dosing Est GFR ( Amer) Est GFR (Non-Af Amer) BUN/Creatinine Ratio Glucose POC Glucose 108 H Calcium Medications Administered Current Inpatient Medications Acetaminophen (Acetaminophen 500 Mg Tab) 1,000 mg PO Q8H PRN PRN Reason: MILD Pain Scale 1,2,3 & Pre PT Stop: 01/18/20 11:22 Al Hydrox/Mg Hydrox/Simethicone (Aluminum/Magnesium Susp 30 Ml Udc) 30 ml PO Q6H PRN PRN Reason: Dyspepsia Stop: 01/18/20 11:22 Amlodipine Besylate (Amlodipine Besylate 5 Mg Tab) 2.5 mg PO DAILY FEDERICO Stop: 01/19/20 08:59 Last Admin: 12/20/19 08:36 Dose: 2.5 mg Documented by: Atorvastatin Calcium (Atorvastatin 40 Mg Tab) 40 mg PO QPM FEDERICO Stop: 01/18/20 20:59 Last Admin: 12/19/19 20:26 Dose: 40 mg Documented by: Bisacodyl (Bisacodyl 10 Mg Supp) 10 mg ME DAILY PRN PRN Reason: Constipation Stop: 01/20/20 09:50 Dextrose (Dextrose 50% 50 Ml Syringe) 25 - 50 ml IV UD PRN; Protocol PRN Reason: Hypoglycemia Protocol Stop: 01/18/20 12:29 Diphenhydramine HCl (Diphenhydramine Capsule 25 Mg Cap) 25 mg PO Q6H PRN PRN Reason: Allergic Rhinitis/Insomnia Stop: 01/18/20 11:22 Epinephrine (Racepinephrine 2.25% Nebu Soln 0.5 Ml Vial) 0.5 ml INH NOW PRN PRN Reason: if stridor present Stop: 01/18/20 11:22 Famotidine (Famotidine 20 Mg Tab) 20 mg PO Q12H PRN PRN Reason: Dyspepsia Stop: 01/18/20 11:22 Furosemide (Furosemide 20 Mg Tab) 20 mg PO QAM FEDERICO Stop: 01/19/20 08:59 Last Admin: 12/20/19 08:35 Dose: 20 mg Documented by: Glucagon (Glucagon For Inj 1 Mg Vial) 1 mg IM UD PRN; Protocol PRN Reason: Hypoglycemia Protocol Stop: 01/18/20 12:29 Glucose (Glucose 40% Gel 15 Gm Tube) 15 - 30 gm PO UD PRN; Protocol PRN Reason: Hypoglycemia Protocol Stop: 01/18/20 12:29 Glucose (Glucose 10 Tabs/Tube) 4 - 8 tabs PO UD PRN; Protocol PRN Reason: Hypoglycemia Protocol Stop: 01/18/20 12:29 Hydromorphone HCl (Hydromorphone Inj 0.5 Mg/0.5 Ml Syr) 0.5 mg IV Q3H PRN PRN Reason: MOD pain (scale 4-6) & Pre PT Stop: 01/02/20 11:22 Last Admin: 12/19/19 16:32 Dose: 0.5 mg Documented by: Hydromorphone HCl (Hydromorphone Inj 1 Mg/Ml Syringe) 1 mg IV Q3H PRN PRN Reason: severe pain (scale 7-10) Stop: 01/02/20 11:22 Last Admin: 12/19/19 12:02 Dose: 1 mg Documented by: Hydroxyzine HCl (Hydroxyzine Hcl 25 Mg Tab) 25 mg PO Q8H PRN PRN Reason: Anxiety Stop: 01/18/20 11:22 Acetaminophen (Ofirmev) 1,000 mg in 100 mls @ 400 mls/hr IV Q8H PRN PRN Reason: Pain Rating 1-3 & Pre PT Stop: 12/20/19 09:52 Last Infusion: 12/20/19 01:20 Dose: Infused Documented by: Dexamethasone Sodium Phosphate (8 mg/ Syringe) 2 mls @ 1 mls/min IV NOW PRN PRN Reason: stridor Stop: 01/18/20 11:22 Promethazine HCl 12.5 mg/ (Sodium Chloride) 50.5 mls @ 202 mls/hr IV Q6H PRN PRN Reason: Nausea &/or Vomiting Stop: 01/18/20 11:22 Lorazepam (Ativan) 0.5 mg in 1 mls @ 1 mls/min IV Q8H PRN PRN Reason: Sedation/Anxiety Stop: 01/18/20 11:22 Dexamethasone Sodium Phosphate (8 mg/ Syringe) 2 mls @ 1 mls/min IV DAILY FEDERICO Stop: 01/19/20 08:59 Last Admin: 12/20/19 08:35 Dose: 1 mls/min Documented by: Influenza Virus Vaccine Quadrival (Do Not Administer Flu Vaccine) 1 ea N/A PRN PRN PRN Reason: Notification Stop: 01/18/20 11:22 Insulin Aspart (Insulin Aspart 100 Units/Ml 3 Ml Pen) 0 units SC ACHS FEDERICO; Protocol Stop: 01/18/20 12:29 Last Admin: 12/20/19 08:37 Dose: 5 units Documented by: Insulin Glargine (Insulin Glargine Solostar 100 Units/Ml 3 Ml Pen) 0 units SC HS FEDERICO; Protocol Stop: 01/18/20 20:59 Last Admin: 12/19/19 20:58 Dose: 11 units Documented by: Lisinopril (Lisinopril 40 Mg Tab) 40 mg PO HS FEDERICO Stop: 01/18/20 20:59 Last Admin: 12/19/19 20:27 Dose: 40 mg Documented by: Lorazepam (Lorazepam 0.5 Mg Tab) 0.5 mg PO Q8H PRN PRN Reason: sedation/anxiety Stop: 01/18/20 11:22 Last Admin: 12/20/19 08:34 Dose: 0.5 mg Documented by: Magnesium Hydroxide (Magnesium Hydroxide Susp 30 Ml Udc) 30 ml PO Q24H PRN PRN Reason: Constipation Stop: 01/18/20 11:22 Metoclopramide HCl (Metoclopramide Hcl Inj 5 Mg/Ml 2 Ml Vial) 10 mg IV Q6H PRN PRN Reason: Nausea &/or Vomiting Stop: 01/18/20 11:22 Miscellaneous (Fenofibrate Micronized - Order Awaiting Action) 1 ea N/A QS FEDERICO Stop: 01/18/20 15:59 Last Admin: 12/20/19 07:48 Dose: Not Given Documented by: Miscellaneous (Carbohydrates For Hypoglycemia ) 15 - 30 gm PO UD PRN PRN Reason: Hypoglycemia Treatment Stop: 01/18/20 12:29 Miscellaneous Information (Pharmacy Glycemic Mgmt Consult) 1 ea N/A UD PRN PRN Reason: Consult Stop: 01/18/20 11:43 Multivitamins/Minerals (Cerovite Adv Formula Tab) 1 tab PO DAILY FEDERICO Stop: 01/19/20 08:59 Last Admin: 12/20/19 08:35 Dose: 1 tab Documented by: Naloxone HCl (Naloxone Hcl 0.4 Mg/1 Ml Vial/Carp) 0.1 mg IV Q5M PRN PRN Reason: Oversedation/respiratory dep Stop: 01/18/20 11:22 Ondansetron HCl (Ondansetron Inj 2 Mg/Ml 2 Ml Vial) 4 mg IV Q6H PRN PRN Reason: Nausea &/or Vomiting Stop: 01/18/20 11:22 Ondansetron HCl (Ondansetron 4 Mg Od Tab) 4 mg PO Q6H PRN PRN Reason: Nausea Stop: 11/26/20 11:22 Oxycodone HCl (Oxycodone Hcl Ir 5 Mg Tab (Immediate Release)) 5 - 10 mg PO Q4H PRN PRN Reason: Pain & Pre PT Stop: 01/02/20 11:22 Last Admin: 12/20/19 05:06 Dose: 10 mg Documented by: Pantoprazole Sodium (Pantoprazole 40 Mg Tab) 40 mg PO QAM FEDER[place] Stop: 01/19/20 08:59 Last Admin: 12/20/19 08:35 Dose: 40 mg Documented by: Pneumococcal Polyvalent Vaccine (Do Not Administer Pneumococcal Vaccine) 1 ea N/A PRN PRN PRN Reason: Notification Stop: 01/18/20 11:22 Polyethylene Glycol (Polyethylene (Miralax) 17 Gm Pack) 17 gm PO Q6 FEDERICO Stop: 01/19/20 09:50 Last Admin: 12/20/19 07:45 Dose: Not Given Documented by: Potassium Chloride (Potassium Chloride 20 Meq Tabcr) 20 meq PO BID FEDERICO Stop: 01/19/20 08:59 Last Admin: 12/20/19 09:00 Dose: Not Given Documented by: Senna/Docusate Sodium (Docusate Sodium/Senna 50/8.6mg Tab) 2 tab PO HS FEDERICO Stop: 01/18/20 20:59 Last Admin: 12/19/19 20:57 Dose: Not Given Documented by: Sodium Biphosphate/Sodium Phosphate (Sod Phosphate/Sod Biphosphate Enema 132 Ml Btl) 132 ml ME ONE PRN PRN Reason: Constipation Stop: 01/18/20 11:22 Tramadol HCl (Tramadol Hcl 50 Mg Tablet) 50 - 100 mg PO Q4H PRN PRN Reason: Moderate-Severe pain & Pre PT Stop: 01/18/20 11:22 Vitamin D (Cholecalciferol (Vitamin D) 400 Units Tablet) 400 units PO QPM FEDERICO Stop: 01/18/20 20:59 Last Admin: 12/19/19 20:27 Dose: 400 units Documented by: PG Care Time/CCT Total # of Minutes Spent Total Time Spent with Patient: Total time spent is greater than 50% in coordination of care (as documented) at patient's floor/unit and/or counseling patient: Coding Level of Care Code 39903 Subseq Hosp Care Lvl 2 Diagnoses Post-operative state Z98.890 Crohns disease K50.90 Type 2 diabetes mellitus without complication E11.9 Hyperlipidemia E78.5 Cervical radiculopathy M54.12 Hypokalemia E87.6
[2019-12-20] MEDS ORDERED: POLYETHYLENE (MIRALAX) 17 GM PACK PO SCH (09:51)
[2019-12-21] MEDS ORDERED: bisacodyL 10 MG SUPP PR PRN (09:51)
== END 2019-12-20 11:07 | disposition home or self-care (01) | DRG 472 ==
LOC: ASU 05:56 → 3E 11:10